=== PATIENT | male | born 1950 | race Caucasian/White ===

== ENCOUNTER 2021-05-04 11:12 | Day surgery (SDC) | payer MEDICARE, OTHER ==
[2021-05-04] MEDS ORDERED: metroNIDAZOLE 500 MG/100 ML 500 MG/100 ML BAG IV ONE (11:38)
[2021-05-04] MEDS ORDERED: CIPROFLOXACIN 400 MG/200 ML 400 MG/200 ML BAG IV STA (11:38)
--- NOTE | 2021-05-04 11:39 | ED Physician Documentation ---
History of Present Illness - Stated complaint Stated Complaint: MALE - Chief complaint Chief Complaint: General - History obtained from History obtained from: Patient - Additonal information Additional information: 70-year-old gentleman who has never had a colonoscopy complains of subacute rectal drainage with physical exertion but since last night has had a painful bulge in his rectum. His bowel movements have been normal, but does note urgency with having to have a bowel movement. He was seen at urgent care and sent here for rectal abscess. Last oral intake 5:45 AM, just tea. Review of Systems Ten Systems: 10 systems reviewed and negative Constitutional: reports: Reviewed and negative Nose: reports: Reviewed and negative Throat: reports: Reviewed and negative Cardiac: reports: Reviewed and negative PD PAST MEDICAL HISTORY - Present Medications Home Medications: Ambulatory Orders Medication Instructions Recorded Confirmed No Known Home Medications 05/04/21 05/04/21 - Allergies Allergies/Adverse Reactions: Allergies Allergy/AdvReac Type Severity Reaction Status Date / Time No Known Drug Allergies Allergy Verified 05/04/21 11:24 PD ED PE NORMAL - Vitals Vital signs reviewed: Yes - General General: Alert and oriented X 3, No acute distress - HEENT HEENT: PERRL, EOMI - Neck Neck: Supple, no meningeal sign, No bony TTP - Cardiac Cardiac: RRR, No murmur - Respiratory Respiratory: No respiratory distress, Clear bilaterally - Abdomen Abdomen: Normal bowel sounds, Soft, Non tender - Rectal Rectal: Other (There is a large pointed rectal abscess on the right side.) - Back Back: No CVA TTP, No spinal TTP - Derm Derm: Normal color, Warm and dry - Extremities Extremities: No edema, No calf tenderness / cord - Neuro Neuro: Alert and oriented X 3, Normal speech Results - Vitals Vitals: Vital Signs - 24 hr 05/04/21 05/04/21 11:19 13:15 Temperature 35.8 C L Heart Rate 65 62 Respiratory 16 16 Rate Blood Pressure 169/86 H 134/80 H O2 Saturation 98 98 Oxygen O2 Source Room air - EKG (time done) 1151 Rate: Rate (enter#) (63) Rhythm: NSR Crozier: Normal Intervals: Normal MA QRS: Low voltage Ischemia: Normal ST segments Computer interpretation: Agree with computer - Labs Labs: Laboratory Tests 05/04/21 05/04/21 05/04/21 11:48 11:48 12:24 WBC 6.8 RBC 4.93 Hgb 15.2 Hct 44.2 MCV 89.7 MCH 30.8 MCHC 34.4 RDW 12.9 Plt Count 208 MPV 9.8 Neut # (Auto) 4.9 Lymph # (Auto) 1.2 L Owsley # (Auto) 0.5 Eos # (Auto) 0.2 Baso # (Auto) 0.1 Absolute Nucleated RBC 0.00 Nucleated RBC % 0.0 PT 12.9 H INR 1.2 Sodium 143 Potassium 4.2 Chloride 105 Carbon Dioxide 28 Anion Gap 10.0 BUN 16 Creatinine 1.1 Estimated GFR (MDRD) 66 L Glucose 108 H Calcium 9.5 - Rads (name of study) 1v chest Radiology: EMP read contemporaneously (NAD) PD MEDICAL DECISION MAKING - ED course ED course: 70-year-old gentleman with large rectal abscess. Case discussed by phone with the on-call surgeon, Dr. Ross who will see the patient after his current case. Requests IV Cipro and Flagyl in the interim as well as an EKG and chest x-ray and INR in addition to basic labs for preoperative clearance. Departure - Departure Disposition: ED Transfer to [facility] Clinical Impression: Rectal abscess Condition: Stable
--- NOTE | 2021-05-04 11:55 | XRAY Report ---
PROCEDURE: Chest 1 View X-Ray INDICATIONS: Preoperative risk assessment TECHNIQUE: One view of the chest was acquired. COMPARISON: None FINDINGS: Surgical changes and devices: None. Lungs and pleura: No pleural effusions or pneumothorax. Lungs are clear. Mediastinum: Mediastinal contours appear normal. Heart size is normal. Bones and chest wall: No suspicious bony lesions. Overlying soft tissues appear unremarkable. IMPRESSION: No acute cardiopulmonary process demonstrated radiographically. Reviewed by: Nagi Corrigan MD on 05/04/2021 11:53 AM PDT Approved by: Nagi Corrigan MD on 05/04/2021 11:53 AM PDT Station ID: [id number]
[2021-05-04 12:14] LABS: BASOPHILS # (AUTO) 0.1 10^3/uL (0.0-0.1); BASOPHILS % (AUTO) 0.7 %; EOSINOPHILS # (AUTO) 0.2 10^3/uL (0.0-0.7); EOSINOPHILS % (AUTO) 2.4 %; HCT - HEMATOCRIT 44.2 % (42.0-52.0); HGB - HEMOGLOBIN 15.2 g/dL (14.0-18.0); LYMPHOCYTES # (AUTO) 1.2 10^3/uL (1.5-3.5); LYMPHOCYTES % (AUTO) 17.6 %; MEAN CORPUSCULAR HEMOGLOBIN 30.8 pg (27.0-31.0); MEAN CORPUSCULAR HGB CONC 34.4 g/dL (32.0-36.0); MEAN CORPUSCULAR VOLUME 89.7 fL (80.0-94.0); MEAN PLATELET VOLUME 9.8 fL (7.4-11.4); MONOCYTES # (AUTO) 0.5 10^3/uL (0.0-1.0); MONOCYTES % (AUTO) 7.4 %; NEUTROPHILS # (AUTO) 4.9 10^3/uL (1.5-6.6); NEUTROPHILS % (AUTO) 71.6 %; PLT - PLATELET COUNT 208 10^3/uL (130-450); RED BLOOD COUNT 4.93 10^6/uL (4.70-6.10); RED CELL DISTRIBUTION WIDTH 12.9 % (12.0-15.0); WHITE BLOOD COUNT 6.8 x10^3/uL (4.8-10.8)
[2021-05-04 12:23] LABS: CALCIUM 9.5 mg/dL (8.5-10.3); CREATININE 1.1 mg/dL (0.6-1.2); POTASSIUM 4.2 mmol/L (3.5-5.0)
--- OUTSIDE RECORDS SUMMARY | 2021-05-04 12:29 | EXTERNAL MEDICAL SUMMARY RPT | Continuity of Care Document ---
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
[2021-05-04 12:47] LABS: INR 1.2 (0.8-1.2); PT - PROTHROMBIN TIME 12.9 secs (9.9-12.6)
--- OUTSIDE RECORDS SUMMARY | 2021-05-04 13:03 | EXTERNAL MEDICAL SUMMARY RPT | Continuity of Care Document ---
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
[2021-05-04 14:35] LABS: B. PARAPERTUSSIS- RESP PCR PAN NOT DETECTED; B. PERTUSSIS- RESP PCR PANEL NOT DETECTED; C. PNEUMONIAE- RESP PCR PANEL NOT DETECTED; CORONAVIRUS 229E-RESP PCR NOT DETECTED; CORONAVIRUS HKU1-RESP PCR NOT DETECTED; CORONAVIRUS NL63-RESP PCR NOT DETECTED; CORONAVIRUS OC43-RESP PCR NOT DETECTED; HUMAN METAPNEUMOVIRUS NOT DETECTED; INFLUENZA A- RESP PCR PANEL NOT DETECTED; INFLUENZA B - RESP PCR PANEL NOT DETECTED; M. PNEUMONIAE- RESP PCR PANEL NOT DETECTED; PARAINFLUENZA VIRUS 1 NOT DETECTED; PARAINFLUENZA VIRUS 2 NOT DETECTED; PARAINFLUENZA VIRUS 3 NOT DETECTED; PARAINFLUENZA VIRUS 4 NOT DETECTED; RHINOVIRUS/ENTEROVIRUS NOT DETECTED; RSV- RESP PCR PANEL NOT DETECTED; SARS-CoV-2 -RESP PCR PANEL NOT DETECTED
[2021-05-04] MEDS ORDERED: ATROPINE ABBOJECT 1 MG/10 ML SYRINGE IVP PRN (15:51)
[2021-05-04] MEDS ORDERED: MORPHINE 2 MG/ML CARPUJECT IVP PRN (15:51)
[2021-05-04] MEDS ORDERED: ePHEDrine 50 MG/ML VIAL IVP PRN (15:51)
[2021-05-04] MEDS ORDERED: METOCLOPRAMIDE 10 MG/2 ML VIAL IVP PRN (15:51)
[2021-05-04] MEDS ORDERED: ONDANSETRON 4 MG/2 ML VIAL IVP PRN ×2 (15:51→19:07)
[2021-05-04] MEDS ORDERED: NALOXONE 0.4 MG/ML VIAL IVP PRN (15:51)
[2021-05-04] MEDS ORDERED: fentaNYL 100 MCG/2 ML VIAL IVP PRN (15:51)
[2021-05-04] MEDS ORDERED: HYDROmorphone 0.5 MG/0.5 ML SYRINGE IVP PRN ×2 (15:51→19:07)
--- NOTE | 2021-05-04 15:51 | ANESTHESIA ---
Pre-Anesthesia VS, & Labs - Diagnosis rectal abscess - Procedure EUA Vital Signs: Temp Pulse Resp BP Pulse Ox 35.8 C L 62 16 134/80 H 98 05/04/21 11:19 05/04/21 13:15 05/04/21 13:15 05/04/21 13:15 05/04/21 13:15 Height: 5 ft 11 in Weight (kg): 95.254 kg Body Mass Index: 29.2 BMI Classification: Overweight - NPO >8 hours - Lab Results Current Lab Results: Laboratory Tests 05/04/21 12:24: PT 12.9 H, INR 1.2 05/04/21 11:48: Sodium 143, Potassium 4.2, Chloride 105, Carbon Dioxide 28, Anion Gap 10.0, BUN 16, Creatinine 1.1, Estimated GFR (MDRD) 66 L, Glucose 108 H , Calcium 9.5 05/04/21 11:48: WBC 6.8, RBC 4.93, Hgb 15.2, Hct 44.2, MCV 89.7, MCH 30.8, MCHC 34.4, RDW 12.9, Plt Count 208, MPV 9.8, Neut # (Auto) 4.9, Lymph # (Auto) 1.2 L, Daniels # (Auto) 0.5, Eos # (Auto) 0.2, Baso # (Auto) 0.1, Absolute Nucleated RBC 0.00, Nucleated RBC % 0.0 Fish Bones: 05/04/21 11:48 05/04/21 11:48 Home Medications and Allergies Home Medications: Ambulatory Orders No Known Home Medications 05/04/21 No Known Home Medications 05/04/21 Allergies/Adverse Reactions: Allergies Allergy/AdvReac Type Severity Reaction Status Date / Time No Known Drug Allergies Allergy Verified 05/04/21 11:24 Anes History & Medical History - Anesthetic History Family history of Anesthesia Complications: Denies Family history of Malignant Hyperthermia: Denies - Medical History Cardiovascular: reports: None Pulmonary: reports: None Gastrointestinal: reports: None Urinary: reports: None Neuro: reports: None Musculoskeletal: reports: None Endocrine/Autoimmune: reports: None Blood Disorders: reports: None Smoking Status: Never smoker - Surgical History Eyes Ears Nose Throat (EENT): reports: Tonsil/Adenoidectomy Exam General: Alert, Oriented x3, Cooperative Dental: WNL Mouth Openin Fingerbreadth Neck Mobility: Normal Mallampati classification: I Thyromental Distance: 4-6 cm Respiratory: Lungs clear Cardiovascular: Regular rate Abdomen: Normal bowel sounds Extremities: No clubbing Neurological: Normal gait Plan Anesthesia Type: General Consent for Procedure(s) Verified and Reviewed: Yes Code Status: Attempt Resuscitation ASA classification: 1-Healthy patient Is this case an emergency?: No
[2021-05-04] MEDS ORDERED: LACTATED RINGERS 1,000 ML IV SCH ×2 (16:00→20:00)
[2021-05-04] MEDS ORDERED: fentaNYL 100 MCG/2 ML VIAL ONE (17:48)
[2021-05-04] MEDS ORDERED: MIDAZOLAM 2 MG/2 ML VIAL ONE (17:48)
[2021-05-04] MEDS ORDERED: DEXAMETHASONE 4 MG/ML VIAL ONE (17:48)
[2021-05-04] MEDS ORDERED: ONDANSETRON 4 MG/2 ML VIAL ONE (17:48)
[2021-05-04] MEDS ORDERED: PROPOFOL 200 MG/20 ML VIAL IVP ONE (17:48)
--- NOTE | 2021-05-04 17:51 | SURGERY HX AND PHYSICAL(T) ---
Surgical History & Physical - Chief Complaint/HPI Chief Complaint: Anal pain History of Present Illness: 70-year-old male presenting for acute onset anal pain. Patient reports increasing anal leakage. Acute onset pain. Patient reports he has been increasing his physical activity recently. Reports palpable nodule with severe pain. Presents to the ER for evaluation. No significant family history. Patient reports 2 bowel movements daily with no associated diarrhea, no significant change in bowel function, denies bleeding per rectum, and also denies reflux associated symptoms. Patient does not use tobacco. Patient has a history of alcohol use but denies any associated abuse. No history of heart attack or stroke. Patient takes no systemic anticoagulation. Endoscopic history includes no prior colonoscopy and he has undergone stool studies as part of his routine screening. - PMH/PSH/Social Hx Neurological History: None Cardiovascular: None Respiratory: None Endocrine/Autoimmune: None Gastrointestinal: None Urinary: None Musculoskeletal: None Blood Disorders: None Eyes Ears Nose Throat (EENT): Tonsil/Adenoidectomy Smoking Status: Never smoker Does the pt drink ETOH?: Yes Does the pt have substance abuse?: No - Home Meds and Allergies Home Medications: No Known Home Medications 05/04/21 Allergies/Adverse Reactions: Allergies Allergy/AdvReac Type Severity Reaction Status Date / Time No Known Drug Allergies Allergy Verified 05/04/21 11:24 - Review of Systems Constitutional: Fatigue, Malaise Gastrointestinal: Other (Severe anal pain) - Vital Signs Heart Rate: 63 Blood Pressure: 139/85 Temperature: 36.6 C Respiratory Rate: 18 O2 Saturation: 100 Weight (kg): 95.254 kg Height: 1.8 m - Physical Exam Comments/Other: General Appearance: positive: No acute distress Eyes Bilateral: positive: Normal inspection ENT: positive: ENT inspection nml Neck: positive: Nml inspection Respiratory: positive: Chest non-tender, No respiratory distress, Breath sounds nml. negative: Wheezes, Rales, Rhonchi Cardiovascular: positive: Regular rate & rhythm Abdomen: positive: No distention, Other. negative: Guarding, Rebound Extremities: positive: Non-tender, Full ROM, Nml appearance Neurologic/Psychiatric: positive: Oriented x3, CN's nml (2-12) Anorectal exam: Inspection: External Hemorrhoids - palpable large external nodule possibly infected Fissure in ano -none Erythema (perianal) -yes Other -N/A Palpation: Fluctuance -yes Palpable cord -none Scar tissue -none Induration -none Digital Rectal Exam: Deferred secondary to pain - Patient Review Patient Review: Problems were reviewed with the patient during this visit. Medications were reviewed with the patient during this visit. Allergies were reviewed this patient during this visit. Pertinent Tests Reviewed: All pertitent test for this patient were reviewed. - Assessment & Plan Assessment and Plan: 70-year-old male with likely infected external thrombosed hemorrhoid prohibitive for thorough anorectal exam. Patient will need to undergo exam under anesthesia and likely excision of external hemorrhoidal thrombosis. Patient was advised of the risk and benefits. Patient will be started on Flomax. We will likely keep the patient postop for observation. Please note that voice recognition software was used to transcribe this note and inadvertent errors might persist in spite of review and editing. I am obliged to you for your attention. I am thankful to you for allowing me to participate with you in this care of this patient.
[2021-05-04] MEDS ORDERED: BUPIVACAINE 0.5%-EPI 1:200000 PF 30 ML VIAL ONE (17:58)
[2021-05-04] MEDS ORDERED: BUPIVACAINE 0.5%-EPI 1:200000 PF 30 ML VIAL SUBQ ONE (18:26)
[2021-05-04] MEDS ORDERED: LACTATED RINGERS 1,000 ML IV ONE (18:40)
[2021-05-04] MEDS ORDERED: oxyCODONE 5 MG TABLET PO PRN (19:07)
--- NOTE | 2021-05-04 19:14 | OPERATIVE REPORT ---
Operative Report - General Procedure Date: 05/04/21 Planned Procedure: 1. Exam under anesthesia 2. Incision and drainage 3. Possible excision of thrombosed external hemorrhoid 4. Pudendal block 5. Mina catheterization Pre-Op Diagnosis: Levator spasm; prohibitive bedside exam; possible infected external hemorrh Procedure Performed: 1. Exam under anesthesia 2. Incision and drainage 3. Excision of thrombosed external hemorrhoid 4. Single quadrant hemorrhoidectomy 6. Pudendal block 7. Mina catheterization Post Op Diagnosis: Same; large infected external hemorrhoidal thrombosis. - Procedure Note Primary Surgeon: Vandana Secondary Surgeon: ELIZABETH Anesthesia Provider: Darion Anesthesia Technique: General LMA, Local Pathology: Single Quadrant, Right Posterior hemorrhoid Estimated Blood Loss (mL): 3 Indications: See EMR Findings: See OP REPORT Complications: NONE - Other Other Information/Narrative: Anorectal exam: Inspection: External Hemorrhoids - large thrombosed, questionably infected, Right posterior Fissure in ano - none Erythema (perianal) - none Other - N/A Palpation: Fluctuance - yes Palpable cord - none Scar tissue - none Induration - yes Digital Rectal Exam: Rectal Tone - good Fluctuance - positive Sphincter - intact Masses -none Anoscopy: Hemorrhoids - Grade II/III Bleeding - none Distal proctitis - none Exam under anesthesia: The patient was taken to the operating room, placed supine on the operating table and after bilateral lower extremity compression devices were placed, general LMA anesthesia was induced. The patient was placed in a high lithotomy with candy-cane stirrups and perioperative antibiotics were dosed within an hour of incision, and again, the patient was prepped and draped in the usual sterile fashion. TIME OUT was called and agreed to by all in room. A circumferential exam was performed with Yamileth local was infused for a pudendal block. Findings are noted above. There was concern for infected thrombosed external hemorrhoid that precluded bedside exam or intervention. This was in the right posterior quadrant. With this completed, the above noted hemorrhoidal complex(es) were addressed for excisional, open wick hemorrhoidectomy as follows. A planned incision was made and a single quadrant hemorrhoidectomy was performed incising the perianal skin sharply with a 10-blade and taking this dissection through down to the anal canal to include all the hemorrhoidal tissue using sharp dissection with Metzenbaum scissors. The sphincteric complex was noted and protected throughout the entirety of this dissection. The pedicle was narrowed at the level of the dentate line and was clamped and excised, and sent for permanent pathology and this was tied using 2-0 Vicryl ties and hemostasis was achieved. Pedicle was thereafter again ligated with #2-0 vicryl stitch that was again tied at apex for hemostasis. Wound was again checked for hemostasis. The perianal skin was left open for granulation and healing by secondary intention. The patient tolerated the procedure well with no complications. All counts for sponges, needles, and instruments were correct at the conclusion of this operative case. Please note that voice recognition software was used to transcribe this note and inadvertent errors might persist in spite of review and editing. I am obliged to you for your attention. I am thankful to you for allowing me to participate with you in this care of this patient.
--- NOTE | 2021-05-04 19:17 | HISTORY & PHYSICAL EXAMINATION ---
History and Physical - History and Physical BRIEF Operative Report - General Procedure Date: 05/04/21 Planned Procedure: 1. Exam under anesthesia 2. Incision and drainage 3. Possible excision of thrombosed external hemorrhoid 4. Pudendal block 5. Mina catheterization Pre-Op Diagnosis: Levator spasm; prohibitive bedside exam; possible infected external hem Procedure Performed: 1. Exam under anesthesia 2. Incision and drainage 3. Excision of thrombosed external hemorrhoid 4. Single quadrant hemorrhoidectomy 6. Pudendal block 7. Mina catheterization Post Op Diagnosis: Same; large infected external hemorrhoidal thrombosis. - Procedure Note Primary Surgeon: Vandana Secondary Surgeon: ELIZABETH Anesthesia Provider: Darion Anesthesia Technique: General LMA, Local Pathology: Single Quadrant, Right Posterior hemorrhoid Estimated Blood Loss (mL): 3 Indications: See EMR Findings: See OP REPORT Complications: NONE
[2021-05-04] MEDS: metroNIDAZOLE 500 MG/100 ML 500 MG/100 ML BAG IV SCH (20:03)
[2021-05-04] MEDS: TAMSULOSIN 0.4 MG CAPSULE PO SCH (20:03)
--- NOTE | 2021-05-04 21:47 | ANESTHESIA POST OP EVALUATION ---
Anesthesia Post Eval - Post Anesthesia Eval Vitals: Last Vital Signs Temp 36.3 C L 05/04/21 20:50 Pulse 58 L 05/04/21 20:50 Resp 20 05/04/21 20:50 BP 132/70 H 05/04/21 20:50 Pulse Ox 97 05/04/21 20:50 CV Function Including HR & BP: Stable Pain Control: Satisfactory Nausea & Vomiting: Negative Mental Status: Baseline Respiratory Status: Airway Patent Hydration Status: Satisfactory Anesthesia Complications: None
[2021-05-04] MEDS: CIPROFLOXACIN 400 MG/200 ML 400 MG/200 ML BAG IV SCH (21:49)
[2021-05-04] MEDS: DOCUSATE SODIUM 100 MG CAPSULE PO SCH (21:49)
[2021-05-04] MEDS: polyethylene glycoL 3350 17 GM PACKET PO SCH (22:13)
[2021-05-05] MEDS: KETOROLAC 30 MG/ML VIAL IVP SCH ×3 (04:44→12:01)
[2021-05-05] MEDS: methocarbamoL 500 MG TABLET PO SCH ×3 (04:45→12:00)
[2021-05-05] MEDS: metroNIDAZOLE 500 MG/100 ML 500 MG/100 ML BAG IV SCH ×2 (04:45→12:00)
[2021-05-05] MEDS: DOCUSATE SODIUM 100 MG CAPSULE PO SCH (08:51)
[2021-05-05] MEDS: TAMSULOSIN 0.4 MG CAPSULE PO SCH (08:51)
[2021-05-05] MEDS: CIPROFLOXACIN 400 MG/200 ML 400 MG/200 ML BAG IV SCH (08:52)
[2021-05-05] MEDS: polyethylene glycoL 3350 17 GM PACKET PO SCH (08:52)
--- NOTE | 2021-05-05 12:22 | Discharge Plan ---
Discharge Plan Problem Reviewed?: Yes Disposition: Home, Self Care Condition: Good Prescriptions: oxyCODONE [Roxicodone] 5 mg PO Q4HR PRN #30 tablet PRN Reason: Pain methocarbamoL [Robaxin] 500 mg PO Q6HR PRN #50 tablet PRN Reason: Spasms Docusate Sodium 100Mg Capsule [Colace 100Mg Capsule] 100 mg PO BID #60 cap Tamsulosin [Flomax] 0.4 mg PO DAILY #30 tab polyethylene glycoL 3350 [Miralax] 17 gm PO DAILY #30 packet Diet: Regular Activity Restrictions: Wt Bearing as Tolerated Shower Restrictions: No Driving Restrictions: Yes (no driving while taking narcotic pain medications) Instruction Topics: Hemorrhoids Thrombosed, Hemorrhoids Tx Removal, Perianal Abscess, ED July Anal Abscess IandD Additional Instructions or Follow Up instructions: POST ANORECTAL SURGICAL INSTRUCTIONS: PLAN: 1. Resume anticoagulation, if any, as per specific instructions. Call for any bleeding before resuming anticoagulation. 2. The patient to call for fevers, significant bleeding, severe pain or urinary retention. 3. The patient was advised to remove anal packing on the a.m. of postoperative day #1. 4. The patient to continue with warm tub soaks twice daily unless fistula plug is placed, in which case no submersive baths. 5. The patient to proceed with a high-fiber diet as recommended with mechanical fiber supplementation. 6. The patient to proceed with a bowel regimen including Colace, given narcotics for postoperative pain, and MiraLAX for salvage if ??he / she ?? fails to have bowel movement within 2 days of operative intervention. If no bowel movement within 3 days, patient to call service/office. 7. The patient to follow up with me in 10 days post procedure. 8. The patient to continue with antibiotics as instructed if prescribed. 9. Patient was advised that if instilled with Exparel (Liposomal Bupivicaine) no lidocaine for 96 hours, and arm band to be left in place as indicative of this. 10. No driving while taking narcotics, and avoid exertional activity in the immediate post-operative period. Impression/Plan 1. Oxycodone every 4-6 hours as needed for pain 2. Take Colace twice daily and MiraLAX daily as per above while taking narcotics and if no bowel function 3. Avoid nonsteroidals and continue with acetaminophen 650 mg every 6 hours not to exceed 4 g daily 4. Patient to also follow-up in surgery clinic for staple removal. 5. Patient to call or return to the hospital through ER for fevers, nausea, vomiting, abdominal pain or any other worrisome symptoms or concerns. 6. Patient not to return to any work capacity until seen in clinic. No Smoking: If you smoke, Please STOP! Call for help. Follow-up with: CHANDU VILLANUEVA MD [Primary Care Provider] - Leroy Ross MD [Provider Admit Priv/Credential] - 2 Weeks
[2021-05-05 13:35] VITALS: BP 115/58
== END 2021-05-05 13:50 | disposition home or self-care (01) ==
LOC: ED 11:12 → SDS 12:42 → MS2 19:11 → SDS 05-05 13:50
PROVIDERS: ATTEND Surgery
PROC: 06BY0ZC Excision of Hemorrhoidal Plexus, Open Approach (ICD-10-PCS; principal; 2021-05-04 16:00)
DX: K64.2 Third degree hemorrhoids (principal); K62.89 Other specified diseases of anus and rectum; Z20.822 Contact with and (suspected) exposure to COVID-19; E66.3 Overweight; Z68.29 Body mass index [BMI] 29.0-29.9, adult
CPT/HCPCS: 36415; 46999; 71045; 80048; 85025; 85610; 87631; 88304; 93005; 96365; 96368; 99284; 99285; A9270; J7120; 0202U

== ENCOUNTER 2023-01-03 08:00 | Outpatient (CLI) | payer MEDICARE, OTHER | END 2023-01-03 23:59 | disposition home or self-care (01) | LOC: LAB.N 08:00 | PROVIDERS: ATTEND Physician Assistant | DX: R55 Syncope and collapse (principal) | CPT/HCPCS: 82962 ==

== ENCOUNTER 2023-01-03 09:16 | Emergency (ER) | payer MEDICARE, OTHER ==
[2023-01-03] MEDS ORDERED: SODIUM CHLORIDE 0.9% 1,000 ML IV STA (09:59)
[2023-01-03] MEDS ORDERED: MECLIZINE 12.5 MG TABLET PO STA (09:59)
[2023-01-03 10:17] LABS: BASOPHILS # (AUTO) 0.1 10^3/uL (0.0-0.1); BASOPHILS % (AUTO) 0.7 %; EOSINOPHILS # (AUTO) 0.2 10^3/uL (0.0-0.7); EOSINOPHILS % (AUTO) 2.6 %; HGB - HEMOGLOBIN 16.1 g/dL (14.0-18.0); LYMPHOCYTES # (AUTO) 1.2 10^3/uL (1.5-3.5); LYMPHOCYTES % (AUTO) 17.2 %; MEAN CORPUSCULAR HEMOGLOBIN 29.9 pg (27.0-31.0); MEAN CORPUSCULAR HGB CONC 32.9 g/dL (32.0-36.0); MEAN CORPUSCULAR VOLUME 90.9 fL (80.0-94.0); MEAN PLATELET VOLUME 9.5 fL (7.4-11.4); MONOCYTES # (AUTO) 0.3 10^3/uL (0.0-1.0); MONOCYTES % (AUTO) 4.5 %; NEUTROPHILS # (AUTO) 5.1 10^3/uL (1.5-6.6); NEUTROPHILS % (AUTO) 74.7 %; PLT - PLATELET COUNT 216 10^3/uL (130-450); RED BLOOD COUNT 5.39 10^6/uL (4.70-6.10); RED CELL DISTRIBUTION WIDTH 13.3 % (12.0-15.0); WHITE BLOOD COUNT 6.9 x10^3/uL (4.8-10.8)
[2023-01-03 10:35] LABS: ALBUMIN 4.4 g/dL (3.2-5.5); ALBUMIN/GLOBULIN RATIO 1.4 (1.0-2.2); BILIRUBIN,TOTAL 0.4 mg/dL (0.2-1.0); CALCIUM 9.6 mg/dL (8.5-10.3); CREATININE 1.3 mg/dL (0.6-1.2); TOTAL PROTEIN 7.6 g/dL (6.7-8.2)
--- NOTE | 2023-01-03 10:37 | XRAY Report ---
PROCEDURE: Chest 1 View X-Ray INDICATIONS: Chest Pain TECHNIQUE: One view of the chest was acquired. COMPARISON: 05/04/2021 FINDINGS: Surgical changes and devices: None. Lungs and pleura: No pleural effusions or pneumothorax. Lungs are clear. Mediastinum: Mediastinal contours appear normal. Heart size is normal. Bones and chest wall: No suspicious bony lesions. Overlying soft tissues appear unremarkable. IMPRESSION: No acute cardiopulmonary process demonstrated radiographically. Reviewed by: Nagi Corrigan MD on 01/03/2023 10:35 AM [facility] Approved by: Nagi Corrigan MD on 01/03/2023 10:35 AM [facility] Station ID: [id number]
--- NOTE | 2023-01-03 10:57 | CT Report ---
PROCEDURE: HEAD WO INDICATIONS: vertigo, syncope TECHNIQUE: Noncontrast 4.5 mm thick angled axial sections acquired from the foramen magnum to the vertex. For r adiation dose reduction, the following was used: automated exposure control, adjustment of mA and/or kV according to patient size. COMPARISON: None. FINDINGS: Image quality: Excellent. CSF spaces: Basal cisterns are patent. No extra-axial fluid collections. Ventricles are normal in size and shape. Brain: No midline shift. No intracranial masses or hemorrhage. Merritt-white matter interface is norm al. Skull and face: Calvarium and visualized facial bones are intact, without suspicious lesions. Sinuses: Visualized sinuses and mastoids are clear. IMPRESSION: No acute intracranial finding. Reviewed by: Nagi Corrigan MD on 01/03/2023 10:55 AM [facility] Approved by: Nagi Corrigan MD on 01/03/2023 10:55 AM [facility] Station ID: [id number]
--- NOTE | 2023-01-03 11:10 | ED Physician Documentation ---
History of Present Illness - Stated complaint Stated Complaint: DIZZINESS - Chief complaint Chief Complaint: Neuro - History obtained from History obtained from: Patient, Family - History of Present Illness Pain level max: 0 Pain level now: 0 - Additonal information Additional information: Patient is a 72-year-old male who presents to the emergency department with dizziness today. He states that this started about 4 to 5 days ago. He states that he feels intermittently lightheaded, off balance and like the room is spinning. Worse with movement, better with rest. He states that he believes he passed out yesterday on the garage floor. No injuries. No chest pain. No shortness of breath. He went to the walk-in clinic today and was sent here for evaluation. Review of Systems Constitutional: denies: Fever, Chills Respiratory: denies: Cough GI: denies: Nausea, Vomiting, Diarrhea PD PAST MEDICAL HISTORY - Past Medical History Cardiovascular: None Respiratory: None Neuro: None Endocrine/Autoimmune: None GI: None : None Musculoskeletal: None - Past Surgical History HEENT: Tonsil/Adenoidectomy - Present Medications Home Medications: Ambulatory Orders Medication Instructions Recorded Confirmed Docusate Sodium 100Mg Capsule 100 mg PO BID #60 cap 05/05/21 [Colace 100Mg Capsule] Tamsulosin [Flomax] 0.4 mg PO DAILY #30 tab 05/05/21 methocarbamoL [Robaxin] 500 mg PO Q6HR PRN #50 tablet 05/05/21 oxyCODONE [Roxicodone] 5 mg PO Q4HR PRN #30 tablet 05/05/21 polyethylene glycoL 3350 [Miralax] 17 gm PO DAILY #30 packet 05/05/21 Meclizine HCl [Motion Sickness] 25 mg PO Q6H PRN #30 tablet 01/03/23 - Allergies Allergies/Adverse Reactions: Allergies Allergy/AdvReac Type Severity Reaction Status Date / Time No Known Drug Allergies Allergy Verified 01/03/23 09:40 - Social History Does the pt smoke?: No Smoking Status: Never smoker Does the pt drink ETOH?: Yes Does the pt have substance abuse?: No - Immunizations Immunizations are current?: Yes PD ED PE NORMAL - Vitals Vital signs reviewed: Yes - General General: Alert and oriented X 3, No acute distress, Well developed/nourished - HEENT HEENT: Atraumatic, PERRL, EOMI, Moist mucous membranes, Pharynx benign - Neck Neck: Supple, no meningeal sign - Cardiac Cardiac: RRR, Strong equal pulses - Respiratory Respiratory: No respiratory distress, Clear bilaterally - Abdomen Abdomen: Soft, Non tender, Non distended - Derm Derm: Warm and dry - Extremities Extremities: No edema, No calf tenderness / cord - Neuro Neuro: Alert and oriented X 3, link cutter 2-12 intact, No motor deficit, No sensory deficit, Other (Positive Hallpike to the right. Positive nystagmus to the right) Eye Opening: Spontaneous Motor: Obeys Commands Verbal: Oriented GCS Score: 15 - Psych Psych: Normal mood, Normal affect Results - Vitals Vitals: Vital Signs - 24 hr 01/03/23 01/03/23 01/03/23 09:28 10:02 11:44 Temperature 36.5 C Heart Rate 77 75 65 Respiratory 14 17 12 Rate Blood Pressure 156/90 H 149/85 H 113/67 O2 Saturation 100 99 98 01/03/23 01/03/23 01/03/23 12:36 13:00 13:30 Temperature Heart Rate 65 63 59 L Respiratory 16 18 10 L Rate Blood Pressure 146/90 H 136/75 H 122/67 O2 Saturation 100 100 99 Oxygen O2 Source Room air - Labs Labs: Laboratory Tests 01/03/23 01/03/23 01/03/23 10:12 10:12 10:12 WBC 6.9 RBC 5.39 Hgb 16.1 Hct 49.0 MCV 90.9 MCH 29.9 MCHC 32.9 RDW 13.3 Plt Count 216 MPV 9.5 Neut # (Auto) 5.1 Lymph # (Auto) 1.2 L Reagan # (Auto) 0.3 Eos # (Auto) 0.2 Baso # (Auto) 0.1 Absolute Nucleated RBC 0.00 Nucleated RBC % 0.0 Sodium 140 Potassium 4.0 Chloride 104 Carbon Dioxide 26 Anion Gap 10.0 BUN 17 Creatinine 1.3 H Estimated GFR (MDRD) 54 L Glucose 136 H Calcium 9.6 Total Bilirubin 0.4 AST 21 ALT 15 Alkaline Phosphatase 61 Troponin I High Sens 2.7 Total Protein 7.6 Albumin 4.4 Globulin 3.2 Albumin/Globulin Ratio 1.4 Lipase 30 - Rads (name of study) head CT Radiology: Final report received, See rad report MRI brain Radiology: Final report received, See rad report PD Medical Decision Making - ED course Complexity details: considered differential, d/w patient ED course: Patient with what sounds like vertigo. He also had a syncopal event yesterday during the vertigo. No acute findings on EKG, telemetry. No significant lab abnormalities. Negative high-sensitivity troponin. Negative head CT. No acute findings on brain MRI. Improved with meclizine. We will treat his vertigo. We will have him follow-up with his PCP for further care. GCS 15.Normal gait. Normal cerebellar testing. Patient counseled regarding signs and symptoms for which I believe and urgent re-evaluation would be necessary. Patient with good understanding of and agreement to plan and is comfortable going home at this time This document was made in part using voice recognition software. While efforts are made to proofread this document, sound alike and grammatical errors may occur. Departure - Departure Disposition: 01 Home, Self Care Clinical Impression: Vertigo Condition: Good Instructions: ED Vertigo Unspecified Follow-Up: Your,doctor in 3 days [Other] Prescriptions: Meclizine HCl [Motion Sickness] 25 mg PO Q6H PRN #30 tablet PRN Reason: Dizziness Comments: Please follow-up with your doctor for further care. If your symptoms persist, your doctor will likely want to send you to an clinical research nurse for further evaluation. Your head CT, MRI, EKG, laboratory testing did not show any acute abnormalities today. Please return if you worsen. Your prescriptions were sent to [facility] in [place]. Discharge Date/Time: 01/03/23 14:03 NIHSS - Time Time: 09:52 - Level of Consciousness Level of consciousness: (0) Alert, Keenly responsive LOC Questions: (0) Answers both Q's correct LOC Commands: (0) Performs both correctly - Gaze Best Gaze: (0) Normal - Visual Visual: (0) No loss - Facial Palsy Facial Palsy: (0) Normal, symmetrical movement - Motor Arms (both separate) Motor Arm (right): (0) No drift Motor Arm (left): (0) No drift - Motor Legs (both separate) Motor Leg (right): (0) No drift Motor Leg (left): (0) No drift - Limb Ataxia Limb Ataxia: (0) Absent - Sensory Sensory: (0) Normal - Best Language Best Language: (0) No aphasia - Dysarthria Dysarthria: (0) Normal - Extinction and Inattention (formally neg Extinction and inattention: (0) No abnormality - Total Score/Results Total Score/Result: 0
--- NOTE | 2023-01-03 12:55 | MRI Report ---
PROCEDURE: BRAIN WO INDICATIONS: vertigo TECHNIQUE: Noncontrast axial T1 spin echo, axial T2 fast spin echo, sagittal and axial FLAIR, coronal T2 fast sp in echo, axial gradient echo, axial diffusion and ADC through the brain. COMPARISON: None. FINDINGS: Image quality: Excellent. CSF Spaces: Basal cisterns are patent. No extra-axial fluid collections. Ventricles are normal in size and shape. Brain: No intracranial masses or hemorrhage. Merritt/white matter interface is normal. Brainstem appe ars normal. Diffusion-weighted images demonstrate no acute ischemic insult. No chronic ischemic ins ults. Normal intravascular flow voids are present. Skull and face: Calvarium has normal marrow signal. Orbits appear normal. Sinuses: Sinuses and mastoids are predominantly clear. IMPRESSION: No acute intracranial finding. Reviewed by: Nagi Corrigan MD on 01/03/2023 12:53 PM PST Approved by: Nagi Corrigan MD on 01/03/2023 12:53 PM [facility] Station ID: [id number]
[2023-01-03 13:54] VITALS: BP 122/67
== END 2023-01-03 14:03 | disposition home or self-care (01) ==
LOC: ED 09:16
DX: R42 Dizziness and giddiness (principal)
CPT/HCPCS: 36415; 70450; 70551; 71045; 80053; 83690; 84484; 85025; 93005; 99283; 99284; A9270